=== PATIENT | male | born 1965 | race Caucasian/White ===

== ENCOUNTER 2016-11-22 11:58 | Emergency (ER) | payer MEDICAID ==
[~2016-11-22] VITALS: Ht 177.8 cm; Wt 92.0 kg
[2016-11-22 12:19] VITALS: Ht 177.8 cm; Wt 92.0 kg
[2016-11-22] MEDS ORDERED: traMADol 50 MG TAB PO ONE (13:00)
[2016-11-22] MEDS ORDERED: ULT50 PO (13:24)
--- NOTE | 2016-11-22 13:29 | ERD ---
ER Documentation Chief Complaint Date/Time DATE: 11/22/16 TIME: 13:27 Chief Complaint abdominal pain this morning HPI This 42-year-old male presents with abdominal pain and swelling starting this morning. He has had some similar pain for the last few months but worsened today with arising from bed. He denies any fevers, vomiting, lower abdominal pain. ROS All systems reviewed and are negative except as per history of present illness. Medications Home Meds Active Scripts Tramadol HCl (Tramadol HCl) 50 Mg Tablet, 50 MG PO Q4 Y for PAIN, #18 TAB Prov:LISA SLOIS MD 11/22/16 Allergies Allergies: Coded Allergies: No Known Allergy (Unverified , 11/22/16) PMhx/Soc History of Surgery: No Anesthesia Reaction: No Hx Neurological Disorder: No Hx Respiratory Disorders: No Hx Cardiac Disorders: No Hx Psychiatric Problems: No Hx Miscellaneous Medical Probl: No Hx Alcohol Use: Yes Hx Substance Use: No Hx Tobacco Use: No Smoking Status: Never smoker Physical Exam Vitals Vital Signs Date Time Temp Pulse Resp B/P Pulse Ox O2 Delivery O2 Flow Rate FiO2 11/22/16 12:19 97.8 80 18 172/96 98 Physical Exam Const: [] Alert, [id number] per Head: Atraumatic Eyes: Normal Conjunctiva ENT: Normal External Ears, Nose and Mouth. Neck: Full range of motion..~ No meningismus. Resp: Clear to auscultation bilaterally Cardio: Regular rate and rhythm, no murmurs Abd: Soft, non tender, there is a palpable reducible midline ventral hernia without rebound tenderness, erythema. There is no tenderness at McBurney's point no Christopher sign.. Normal bowel sounds Skin: No petechiae or rashes Back: No midline or flank tenderness Ext: No cyanosis, or edema Neur: Awake and alert Psych: Normal Mood and Affect Results 24 hrs Current Medications Medications (Trade) Dose Ordered Sig/Torrey Route PRN Reason Start Time Stop Time Status Last Admin Dose Admin Tramadol HCl (Ultram) 50 mg ONCE ONCE PO 11/22/16 13:00 11/22/16 13:01 DC Procedures/MDM This patient presents with signs and symptoms of a ventral hernia which appears to be expanding over the last few months. Signs and symptoms are not consistent with obstruction, incarceration, cellulitis, acute abdomen. He will be treated with tramadol and instructions to follow-up with general surgery for 4 more treatment and evaluation. He was advised to return for fevers, vomiting , new or worsening symptoms . Patient was administered an abdominal binder and was neurovascular intact after the abdominal binder. Departure Diagnosis: Primary Impression: Hernia Condition: Stable Patient Instructions: Hernia (Inguinal, Ventral, Umbilical) Referrals: ROXIE BLAS MD, KAMBIZ M.D. LOMIS, THOMAS MD Additional Instructions: See general surgery for evaluation for surgery. Recheck sooner for fevers, vomiting, new or worsening symptoms. May need authorization from primary doctor for surgery evaluation. LISA SOLIS MD Nov 22, 2016 13:28
[2016-11-22 13:45] VITALS: BP 154/78
== END 2016-11-22 14:03 | disposition home or self-care (01) ==
LOC: FTE 11:58
DX: K43.9 Ventral hernia without obstruction or gangrene (principal)
CPT/HCPCS: Z7502; Z7610